=== PATIENT | male | born 1945 | race Caucasian/White ===

== ENCOUNTER 2017-03-01 12:52 | Inpatient (IN) | payer OTHER, MEDICARE ==
--- NOTE | 2017-03-01 12:59 | CPEKG ---
Heart Rate: 141 RR Interval: 426 QRSD Interval: 132 QT Interval: 360 QTC Interval: 552 P [place]: 0 QRS [place]: -59 T Wave [place]: 121 EKG Severity - ABNORMAL ECG - EKG Impression: SVT with aberrancy Electronically Signed By: Dat Lino 03-Mar-2017 10:45:59
[2017-03-01] MEDS ORDERED: NS 1,000 ML IV ONE (13:15)
[2017-03-01 13:25] LABS: % IMMATURE GRANULYOCYTES 0.6 % (0.0-1.1); ABSOLUTE IMMATURE GRANULOCYTES 0.04 10^3/uL (0.00-0.10); ADD DIFF? NO; ADD MORPH? NO; ADD SCAN? NO; ATYPICAL LYMPHOCYTE FLAG 0 (0-99); FRAGMENT RBC FLAG 0 (0-99); HEMOGLOBIN 18.9 g/dL (13.7-17.5); LEFT SHIFT FLG 0 (0-99); LIPEMIA HEMOLYSIS FLAG 90 (0-99); MEAN CELL HEMOGLOBIN 33.5 pg (27.9-34.1); MEAN CELL HEMOGLOBIN CONCENTR. 35.7 g/dL (32.4-36.7); MEAN PLATELET VOLUME 9.9 fL (8.7-11.7); PLATELET CLUMPS FLAG 0 (0-99); PLATELET COUNT 183 10^3/uL (150-400); RED BLOOD CELL COUNT 5.64 10^6/uL (4.40-6.38); RED CELL DISTRIBUTION WIDTH 13.4 % (11.5-15.2)
[2017-03-01 13:42] LABS: ANION GAP 15 mEq/L (8-16); CALCIUM 9.8 mg/dL (8.5-10.4); CARBON DIOXIDE 25 mEq/l (22-31); CHLORIDE 101 mEq/L (97-110); GLOMERULAR FILTRATION RATE > 60; GLUCOSE 112 mg/dL (70-100); POTASSIUM 4.5 mEq/L (3.5-5.2); SODIUM 141 mEq/L (134-144)
[2017-03-01 14:13] LABS: TROPONIN I < 0.012 ng/mL (0.000-0.034)
--- NOTE | 2017-03-01 15:41 | CPEKG ---
Heart Rate: 76 RR Interval: 789 P-R Interval: 156 QRSD Interval: 130 QT Interval: 416 QTC Interval: 468 P [place]: 57 QRS [place]: -92 T Wave [place]: 11 EKG Severity - ABNORMAL ECG - EKG Impression: SINUS RHYTHM EKG Impression: RBBB AND LAFB EKG Impression: REPOLARIZATION ABNORMALITIES, ANTERIOR LEADS EKG Impression: COMPARED WITH 03/01/2017 AT 12:57 P.M., SINUS RHYTHM HAS BEEN RESTORED. Electronically Signed By: Jamee Vicente 01-Mar-2017 18:00:15
[2017-03-01] MEDS ORDERED: ONDANSETRON DISINTEGRATING 4 MG TAB PO PRN (16:46)
[2017-03-01] MEDS ORDERED: ONDANSETRON 4 MG/2 ML VIAL IVP PRN (16:46)
[2017-03-01] MEDS ORDERED: ACETAMINOPHEN 325 MG TAB PO PRN (16:46)
--- NOTE | 2017-03-01 17:42 | GHP ---
[f rep st] HISTORY AND PHYSICAL DATE OF ADMISSION: 03/01/2017 HISTORY OF PRESENT ILLNESS: The patient is a pleasant 71-year-old gentleman with a minimal past med ical history, who presented to his primary care physician's office with complaints of a rash. It so unds like he has a pruritic rash on his shoulders and arms, without erythema, fever or chills. It h as been bothering him at night. At his primary care physician's office, Dr. Buitrago, he was noted to have a pulse of 157. He was referred to Urgent Care, where he was found to have a wide-complex tac hycardia. He was referred to the emergency department for further evaluation. When I speak with the patient, he notes that he felt some fluttering in his chest. He attributed it to nervousness of going to the doctor. He has no previous history of known coronary disease or arr hythmia. He does drink 4 or 5 alcoholic drinks a day, but does not describe heart failure symptoms or previous symptoms, such as atrial fibrillation. He has no history of loss of consciousness or sy ncope. At Urgent Care, he was found have a wide-complex tachycardia with a left bundle branch block concern ing for ventricular tachycardia. The patient has not had fever or chills. He does not use stimulant medications. He does take Synth roid and has a chronically slightly elevated TSH. REVIEW OF SYSTEMS: Complete 10-point review of systems was conducted and was negative, except as no kerri in the HPI. PAST MEDICAL HISTORY: 1. Moderate to heavy alcohol use. 2. Hypertension. 3. It sounds like he has hyperthyroidism, for which he is treated with Synthroid. Perhaps he had a nodule, which is trying to be suppressed. SOCIAL HISTORY: Alcohol, as in the HPI. No tobacco. He is originally from the [place]. He has wo rked in a variety of jobs. He is retired. He lives in [place]. at the bedside. FAMILY HISTORY: Parents . PHYSICAL EXAM: PRESENTING VITAL SIGNS: Blood pressure 135/107, pulse 148, now in the 70s, breathin g 18 times a minute, 94% on room air, temp 36.6. GENERAL: In no acute distress. HEENT: Sclerae a nicteric. Oropharynx clear. Mucous membranes moist. NECK: Supple, without lymphadenopathy or JVD . LUNGS: Clear to auscultation bilaterally. HEART: S1, S2. ABDOMEN: Soft, nontender, nondisten ded. LOWER EXTREMITIES: Without edema. Calves are nontender. SKIN: Without rash. NEUROLOGIC: Nonfocal. LABS: Sodium 141, potassium 4.5, chloride 101, bicarb 25, BUN 14, creatinine 1.0, glucose 112. Tro ponin less than 0.012, BNP slightly elevated at 368. TSH 5.7. White count 6, hematocrit 53, platel ets are 183,000. IMAGING: Initial EKG interpreted by me shows a wide-complex tachycardia with a left bundle branch b lock pattern, although it is proceeded by a sinus beat with concern for a fusion beat. It is 141. There are some diffusely saggy ST segments across the precordium. Subsequent EKG shows sinus at 76 with left axis deviation, right bundle branch and left anterior fascicular block pattern. He does h ave T-wave inversions with ST depression in V2 and V3. There is no prior for comparison. I have discussed the case Dr. George Villeda. ASSESSMENT AND PLAN: This is a 71-year-old gentleman who presents with a rash and inadvertently fou nd to have wide-complex tachycardia. 1. Wide-complex tachycardia. I suspect this is likely atrial fibrillation with aberrant conduction . However, I do acknowledge there is concern that this represents ventricular tachycardia. His cli nical stability argues against it. Either way, the patient needs a thorough cardiac workup. Echoca rdiogram and serial troponins have been ordered. We will follow him on telemetry. He is being seen by Cardiology. Will determine whether angiogram versus stress test will be indicated. 2. Rash. I suspect this is a hypersensitivity rash. I have ordered a steroid cream. 3. Alcohol use. I think the patient is moderate risk for withdrawal. I am not sure how long he wi ll be in the hospital. We will follow. 4. Prophylaxis. Pharmacologic prophylaxis is indicated. I will start enoxaparin. 5. Elevated thyroid-stimulating hormone. This is chronic and followed by his primary care physicia n. It is only modestly elevated. We will follow. DISPOSITION: For now, inpatient status. /[id number]/MODL
--- NOTE | 2017-03-01 17:47 | EDPHY ---
H & P Time Seen by Provider: 03/01/17 12:59 HPI/ROS: CC: rapid HR HPI: 71 yo male presents with a rapid HR. He was at his PCP's office today for evaluation for a rash. On routine VS check, his HR was 150. He was otherwise asymptomatic. EKG revealed a wide complex tachycardia. He was sent to the ED for further evaluation. Over the last 8 months, he has noticed occasional rapid HR, most often in the afternoons. The rapid HR lasts a variable amount of time , sometimes for a few moments, sometimes for much longer. No associated sx; no cp, SOB, dizziness. h/o hypothyroidism, on thyroid replacement meds, no recent change in dosing. No h/o cardiopulm disease. He also has an itchy rash on his torso and arms. ROS: complete 10 pt ROS negative except as noted in the HPI. Past Medical/Surgical History: Hypothyroidism Social History: Smoking Status: Never smoked Physical Exam: Alert, pleasant, appears comfortable HEENT: normal inspection, OSEAS, EOMI, OP moist Neck: no JVD or adenopathy Chest: normal RR, CTA CV: regular rate and rhythm, no murmur Abd: soft, NT Ext: NT, no edema Neuro: Alert, oriented, motor/sensory grossly intact Psych: affect/mood intact Skin: excoriated rash on BUE and upper torso Constitutional: Initial Vital Signs Temperature (C) 36.6 C 03/01/17 12:57 Heart Rate 148 H 03/01/17 12:57 Respiratory Rate 18 03/01/17 12:57 Blood Pressure 135/107 H 03/01/17 12:57 O2 Sat (%) 94 03/01/17 12:57 O2 Delivery Mode Nasal Cannula O2 (L/minute) 2 Allergies/Adverse Reactions: No Known Allergies Allergy (Verified 03/01/17 15:50) Home Medications: Medication Instructions Recorded Donepezil HCl [Aricept 5 MG (*)] 2.5 mg PO HS 03/01/17 Levothyroxine [Synthroid 25 mcg 25 mcg PO DAILY06 03/01/17 (*)] Ranitidine HCl 150 mg PO PRN PRN 03/01/17 Medical Decision Making - Diagnostics EKG Interpretation: EKG interpreted by me: Wide complex tachycardia, rate 150, c/w ventricular tachycardia. Interpretation: abnormal EKG Repeat EKG: NSR, RBBB Imaging Results: Imaging Impressions Chest X-Ray 03/01/17 13:18 Impression: Mild stable enlargement of the cardiac silhouette, otherwise negative. ED Course/Re-evaluation: This pt presents with wide complex tachycardia, with ddx of SVT with aberrancy vs Vtach. Concerning for non-sustained Vtach, given advanced age and characteristic EKG findings. Initially, he was in NSR on arrival to ED, followed by a few minute episode of wide complex tachycardia. During the episode of NSVT, BP adequate and pt was asymptomatic. I consulted Dr. George Villeda. Dr. Villeda reviewed the EKG's and agreed with likely Vtach. Given pt in NSR throughout the remainder of his [facility] stay, no medications given. He will require inpt admission for further cardiac evaluation. Dr. Villeda will consult on this pt; the hospitalist service was consulted for admission. This pt utilized 35 minutes of critical care time by me exclusive of unbundled procedures. Organ at risk: heart Differential Diagnosis: includes though not limited to SVT, Afib/flutter, Vtach, thyrotoxicosis, hypotension, ACS. - Data Points Laboratory Results: Laboratory Results 03/01/17 13:07 03/01/17 13:07 03/01/17 03/01/17 03/01/17 13:07 13:07 13:07 WBC 6.55 10^3/uL 10^3/uL (3.80-9.50) RBC 5.64 10^6/uL 10^6/uL (4.40-6.38) Hgb 18.9 g/dL H g/dL (13.7-17.5) Hct 53.0 % H % (40.0-51.0) MCV 94.0 fL fL (81.5-99.8) MCH 33.5 pg pg (27.9-34.1) MCHC 35.7 g/dL g/dL (32.4-36.7) RDW 13.4 % % (11.5-15.2) Plt Count 183 10^3/uL 10^3/uL (150-400) MPV 9.9 fL fL (8.7-11.7) Neut % (Auto) 68.3 % % (39.3-74.2) Lymph % (Auto) 16.8 % % (15.0-45.0) Kane % (Auto) 9.5 % % (4.5-13.0) Eos % (Auto) 3.7 % % (0.6-7.6) Baso % (Auto) 1.1 % % (0.3-1.7) Nucleat RBC Rel Count 0.0 % % (0.0-0.2) Absolute Neuts (auto) 4.48 10^3/uL 10^3/uL (1.70-6.50) Absolute Lymphs (auto) 1.10 10^3/uL 10^3/uL (1.00-3.00) Absolute Monos (auto) 0.62 10^3/uL 10^3/uL (0.30-0.80) Absolute Eos (auto) 0.24 10^3/uL 10^3/uL (0.03-0.40) Absolute Basos (auto) 0.07 10^3/uL 10^3/uL (0.02-0.10) Absolute Nucleated RBC 0.00 10^3/uL 10^3/uL (0-0.01) Immature Gran % 0.6 % % (0.0-1.1) Immature Gran # 0.04 10^3/uL 10^3/uL (0.00-0.10) Sodium 141 mEq/L mEq/L (134-144) Potassium 4.5 mEq/L mEq/L (3.5-5.2) Chloride 101 mEq/L mEq/L (97-110) Carbon Dioxide 25 mEq/l mEq/l (22-31) Anion Gap 15 mEq/L mEq/L (8-16) BUN 14 mg/dL mg/dL (7-23) Creatinine 1.0 mg/dL mg/dL (0.7-1.3) Estimated GFR > 60 Glucose 112 mg/dL H mg/dL (70-100) Calcium 9.8 mg/dL mg/dL (8.5-10.4) Troponin I < 0.012 ng/mL ng/mL (0.000-0.034) NT-Pro-B Natriuret Pep 368 pg/mL H pg/mL (0-125) TSH 5.700 uIU/mL H uIU/mL (0.465-4.680) Medications Given: Discontinued Medications Sodium Chloride (Ns) 1,000 mls @ 0 mls/hr IV ONCE ONE PRN Reason: Wide Open Stop: 03/01/17 13:16 Last Admin: 03/01/17 13:15 Dose: 1,000 mls Departure - Departure Disposition: [facility] Inpatient Acute Clinical Impression: Ventricular tachycardia (paroxysmal) Condition: Serious
--- NOTE | 2017-03-01 18:28 | GCON ---
[f rep st] CONSULTATION CARDIOLOGY CONSULTATION DATE OF CONSULTATION: 03/01/2017 INDICATIONS: Wide complex tachycardia. HISTORY OF PRESENT ILLNESS: The patient is a pleasant 71-year-old male. He has no known cardiovasc ular disease. He recalls having seen Dr. Crispin Jaramillo a number of years ago and recalls having had s ome cardiac tests; however, there are no details of those tests in our medical system. He is admitt ed to the hospital with wide complex tachycardia. He states he has been experiencing episodes of "f luttering" in his chest now for several months. He thinks that these episodes tend to be sporadic a nd generally are short-lived. With these events he has no chest pain or shortness of breath. Over the last year, he has had 2 to 3 episodes of near-syncope. One occurred while he was driving. He i s not sure if these events are associated with his typical fluttering sensation in his chest. Earlier today, he was at his PCP's office. He went there to be evaluated for a left arm rash and he was found to be tachycardic. He was sent to the emergency department for further evaluation. On a rrival in the emergency department, he was in a wide complex tachycardia with a heart rate of 141 be ats per minute. In looking at the 12-lead electrocardiogram, it appears that there is a normal sinu s complex with the second beat being a fusion beat and then a wide complex tachycardia after that. These findings are most consistent with ventricular tachycardia. He spontaneously terminated to nor mal sinus rhythm. That electrocardiogram demonstrates sinus rhythm with a left anterior fascicular block and a right bundle branch block with ST/T changes consistent with his IVCD. Currently, he sta aaron he feels well. He denies symptoms of chest discomfort. He does not exercise regularly although apparently does yard work around his 1-acre piece of property. PAST MEDICAL HISTORY: 1. Obesity. 2. Hypertension. 3. Hypothyroidism. HOME MEDICATIONS: Ranitidine 150 mg as needed, levothyroxine 25 mcg daily, and donepezil or Aricept 2.5 mg before bed. ALLERGIES: He has no known drug allergies. SOCIAL HISTORY: He is retired. He used to work in an office. Currently he does not exercise altho ugh he does do yard work. He describes himself as sedentary and has never smoked. He admits to 3 t o 5 drinks a day consisting of either margaritas or beer. SURGICAL HISTORY: He has had a previous surgical repair of a large hiatal hernia and left hand surg susy. REVIEW OF SYSTEMS: A full 10-point review of systems was performed and was otherwise negative. FAMILY HISTORY: Noncontributory. DATABASE: His electrocardiogram as at 12:53 today demonstrated a wide complex tachycardia with a no nspecific IVC morphology and a left axis deviation most consistent with ventricular tachycardia. Bartlett bsequently, his electrocardiogram after termination of this arrhythmia demonstrates sinus rhythm at 76 beats per minute with a right bundle and left anterior fascicular block. His chest x-ray was unr emarkable. White blood cell count 6.55, hematocrit 53.0, platelet count 183,000. Basic metabolic p bahman normal. Troponin negative at less than 0.012. TSH 5.7. N-terminal proBNP is 368,000. IMPRESSION: The patient is a 71-year-old male who presented to his PCP's office for a routine visit for a left arm rash and was found to be in wide complex tachycardia. Historically, he describes calero markg had palpitations now for at least the last 6 months and 2 to 3 episodes of near-syncope over th e last year. His electrocardiogram appears to be most consistent with ventricular tachycardia. The exact etiology for the ventricular tachycardia is not entirely clear. Certainly, underlying ischem ic heart disease is on the differential diagnosis in this 71-year-old obese hypertensive male. Othe r possibilities include an idiopathic ventricular tachycardia or potentially arrhythmogenic right ve ntricular cardiomyopathy. Other forms of cardiomyopathy such as hypertrophic cardiomyopathy certain ly are on the differential diagnosis. RECOMMENDATIONS: 1. He has been admitted to telemetry and we will continue to monitor him overnight. 2. I have ordered an echocardiogram for evaluation of his LV function. 3. I will plan for diagnostic coronary angiography in the morning. 4. I will write to start him on a beta denita, metoprolol 25 mg twice daily and low-dose aspirin. 5. We will check lipids. 6. Further recommendations will be made pending his hospital course. /[id number]/MODL
[2017-03-01 19:37] LABS: CHOLESTEROL 230 mg/dL (140-220); CHOLESTEROL/HDL RATIO 4.89 RATIO (1.00-4.97); HIGH DENSITY LIPOPROTEIN 47 mg/dL (40-65); LDL/HDL RATIO 2.66 RATIO (1.00-3.64); LOW DENSITY LIPOPROTEIN 125 mg/dL (80-100); NON-HIGH DENSITY LIPOPROTEIN 183 mg/dL (90-129); TRIGLYCERIDE 291 mg/dL (40-150); VERY LOW DENSITY LIPOPROTEINS 58 mg/dL (8-25)
[2017-03-01] MEDS: HYDROCORTISONE 1% CREAM TP SCH (20:47)
[2017-03-01] MEDS: METOPROLOL TARTRATE 25 MG TAB PO SCH (20:49)
[2017-03-01] MEDS: TEMAZEPAM 15 MG CAP PO SCH (20:49)
[2017-03-01] MEDS: DONEPEZIL HCL 5 MG TAB PO SCH (20:50)
[2017-03-01] MEDS ORDERED: FAMOTIDINE 20 MG TAB PO PRN (21:00)
[2017-03-02 04:55] LABS: CARBON DIOXIDE 24 mEq/l (22-31); CREATININE 0.9 mg/dL (0.7-1.3); GLOMERULAR FILTRATION RATE > 60; GLUCOSE 99 mg/dL (70-100)
[2017-03-02 05:03] LABS: INR 1.06 (0.83-1.16); PROTIME(PATIENT) 13.7 SEC (12.0-15.0)
[2017-03-02 05:28] LABS: ANION GAP 10 mEq/L (8-16); CHLORIDE 104 mEq/L (97-110); POTASSIUM 4.1 mEq/L (3.5-5.2); SODIUM 138 mEq/L (134-144)
[2017-03-02 05:50] LABS: TROPONIN I < 0.012 ng/mL (0.000-0.034)
[2017-03-02 06:00] LABS: % IMMATURE GRANULYOCYTES 0.5 % (0.0-1.1); ABSOLUTE IMMATURE GRANULOCYTES 0.03 10^3/uL (0.00-0.10); ADD DIFF? NO; ADD MORPH? NO; ADD SCAN? NO; ATYPICAL LYMPHOCYTE FLAG 0 (0-99); FRAGMENT RBC FLAG 10 (0-99); HEMATOCRIT 46.8 % (40.0-51.0); HEMOGLOBIN 16.3 g/dL (13.7-17.5); LEFT SHIFT FLG 0 (0-99); LIPEMIA HEMOLYSIS FLAG 90 (0-99); MEAN CELL HEMOGLOBIN 33.6 pg (27.9-34.1); MEAN CELL HEMOGLOBIN CONCENTR. 34.8 g/dL (32.4-36.7); MEAN CELL VOLUME 96.5 fL (81.5-99.8); MEAN PLATELET VOLUME 9.9 fL (8.7-11.7); PLATELET CLUMPS FLAG 0 (0-99); PLATELET COUNT 170 10^3/uL (150-400); RED BLOOD CELL COUNT 4.85 10^6/uL (4.40-6.38); RED CELL DISTRIBUTION WIDTH 13.3 % (11.5-15.2)
[2017-03-02] MEDS: LEVOTHYROXINE 25 MCG TAB PO SCH (06:31)
--- NOTE | 2017-03-02 09:21 | CPEKG ---
Heart Rate: 52 RR Interval: 1154 P-R Interval: 148 QRSD Interval: 134 QT Interval: 480 QTC Interval: 447 P [place]: 12 QRS [place]: -70 T Wave [place]: -47 EKG Severity - ABNORMAL ECG - EKG Impression: SINUS RHYTHM EKG Impression: RBBB AND LAFB Electronically Signed By: Dat Lino 02-Mar-2017 15:06:23
--- NOTE | 2017-03-02 09:31 | SOAPPROG ---
KEY Progress Note Assessment/Plan: Assessment/Plan: He presents with episodes of palpitations associated with a wide complex tachycardia. Thus far, a his left ventricle appears to be structurally normal. His cardiac enzymes are negative. In reviewing the electrocardiogram during wide complex tachycardia there are no morphologic criteria that suggest ventricular tachycardia. 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 Overall, I think it is most likely that he is experiencing anything episodes supraventricular tachycardia with aberrancy different from his baseline right bundle branch block. Certainly ventricular tachycardia has not been excluded. His case was discussed with electrophysiology. The plan is to proceed with electrophysiologic study to further define this arrhythmia. Further recommendations will be made pending that study. 03/02/17 09:31 Subjective: He did well last night. He had no symptoms of chest discomfort or dyspnea. Telemetry, he remained predominantly in sinus rhythm. He did have an episode of what appears to be an SVT with his typical QRS morphology. Objective: Vital Signs Temp Pulse Resp BP Pulse Ox 36.6 C 51 L 12 138/82 H 91 L 03/02/17 08:45 03/02/17 08:45 03/02/17 08:45 03/02/17 08:45 03/02/17 08:45 Laboratory Results 03/02/17 03:16 03/02/17 03:16 03/01/17 03/02/17 03/03/17 05:59 05:59 05:59 Intake Total 1320 Output Total 450 Balance 870 PT 13.7 SEC (12.0-15.0) 03/02/17 03:16 INR 1.06 (0.83-1.16) 03/02/17 03:16 Laboratory Tests 03/01/17 03/01/17 03/01/17 13:07 13:07 21:05 Troponin I < 0.012 0.021 Triglycerides 291 H Cholesterol 230 H LDL Cholesterol, Calc 125 H Non-HDL Cholesterol 183 H HDL Cholesterol 47 TSH 5.700 H 03/02/17 03:16 Troponin I < 0.012 Triglycerides Cholesterol LDL Cholesterol, Calc Non-HDL Cholesterol HDL Cholesterol TSH 6.340 H Physical Exam - Physical Exam General Appearance: WD/WN, alert Neck: non-tender, full range of motion Respiratory: chest non-tender, lungs clear, normal breath sounds Cardiac/Chest: regular rate, rhythm, No edema, No gallop, No JVD Peripheral Pulses: 2+: carotid (R), carotid (L) Abdomen: non-tender, soft Neuro/Psych: alert, oriented x 3 ICD10 Worksheet Patient Problems: Problems Problem Status Onset Ventricular tachycardia (paroxysmal) Acute Paraesophageal hiatal hernia Acute
[2017-03-02] MEDS: ASPIRIN 81 MG CHEWABLE TAB PO SCH (10:00)
[2017-03-02] MEDS: HYDROCORTISONE 1% CREAM TP SCH ×2 (10:01→21:15)
[2017-03-02] MEDS: ENOXAPARIN 40 MG/0.4 ML SYR SC SCH (10:01)
[2017-03-02] MEDS: METOPROLOL TARTRATE 25 MG TAB PO SCH ×2 (10:01→21:12)
[2017-03-02] MEDS ORDERED: DIAZEPAM 5 MG TAB PO ONE (11:23)
[2017-03-02] MEDS ORDERED: ASPIRIN EC 325 MG TAB PO ONE (11:23)
[2017-03-02] MEDS ORDERED: NS 1,000 ML IV ONE (11:23)
[2017-03-02] MEDS ORDERED: FAMOTIDINE 20 MG TAB PO ONE (11:23)
[2017-03-02] MEDS ORDERED: diphenhydrAMINE 25 MG CAP PO ONE (11:23)
[2017-03-02] MEDS ORDERED: ceFAZolin 2 GM/DEXTROSE 100 ML IV ONE (11:37)
[2017-03-02] MEDS ORDERED: BACITRACIN IRRIGATION/NS 50,000 UNITS/1,000 ML BTL IRR ONE (11:37)
--- NOTE | 2017-03-02 11:48 | PDANEPAE ---
ANE History of Present Illness 71 yo male admitted with arrhythmia, presyncopal symptoms. ANE Past Medical History - Cardiovascular History Hx Hypertension: Yes Hx Arrhythmias: Yes Hx Palpitations: Yes - Pulmonary History Hx Oxygen in Use at Home: No Hx Sleep Apnea: No - Endocrine History Hx Diabetes: No Hypothyroid: Yes - Renal History Renal History Comment: renal stones - GI History GERD: moderate GERD Comment: Rand fundoplication - Chronic Pain History Chronic Pain: No ANE Review of Systems Review of Systems: - Exercise capacity METS (RN): 3 METS (SOB after slow walk for 1 mile, more sedentary laterly.) - Systems Constitutional: Reports: no symptoms Cardiac: Reports: lightheadedness, palpitations, other (Ran out of anti- hypertensives about 10 days ago and has not renewed his med. Cannot remember the name of the med.) Neurological: Reports: other (Pt not on Aricept, that is his 's medication.) ANE Patient History - Allergies Allergies/Adverse Reactions: No Known Allergies Allergy (Verified 03/01/17 15:50) - Home Medications Home medications: home medication list seen and reviewed Home Medications: Donepezil HCl [Aricept 5 MG (*)] 2.5 mg PO HS 03/01/17 [Last Taken 02/22/17] Levothyroxine [Synthroid 25 mcg (*)] 25 mcg PO DAILY06 03/01/17 [Last Taken 11/10] Ranitidine HCl 150 mg PO PRN PRN 03/01/17 [Last Taken Unknown] - NPO status NPO Status: no food or drink >8 hours - Anes Hx Anes Hx: no prior problems - Smoking Hx Smoking Status: Never smoked Marijuana use: No - Alcohol Use Alcohol Use: Heavy (2-6 / day) - Family Anes Hx Family Anes Hx: neg - N/A ANE Labs/Vital Signs - Labs Result Diagrams: 03/02/17 03:16 03/02/17 03:16 - Vital Signs Blood Pressure: 138/82 Heart Rate: 51 Respiratory Rate: 12 O2 Sat (%): 91 Height: 177.8 cm Weight: 96.7 kg ANE Physical Exam - Airway Neck exam: FROM Mallampati Score: Class 3 Mouth exam: normal dental/mouth exam - Pulmonary Pulmonary: clear to auscultation - Cardiovascular Cardiovascular: regular rate and rhythym - ASA Status ASA Status: III ANE Anesthesia Plan Anesthesia Plan: general endotracheal anesthesia
--- NOTE | 2017-03-02 12:45 | PDHPUP ---
History & Physical Update H&P update statement: This history and physical update is based on an assessment of the patient which was completed after admission or registration (within 24 hours), but prior to the surgery/procedure. H&P update: H&P reviewed & patient examined, no change in patient's condition since H&P completed
--- NOTE | 2017-03-02 12:45 | PDPROPOC ---
Sedation Plan of Care Sedation Plan of Care: vital signs stable, mental status noted, patient educated of risks, benefits, alternatives, patient can tolerate sedation ASA Classification: ASA 3 Mallampati Score: Class 3 Mallampati Reference Image: Patient passed 3-3-2 rule?: Yes
[2017-03-02] MEDS ORDERED: LIDOCAINE 1% 300 MG/30 ML SDV ONE (12:53)
[2017-03-02] MEDS ORDERED: HEPARIN 10,000 UNIT/10 ML MDV ONE (12:53)
[2017-03-02] MEDS ORDERED: ISOPROTERENOL HCL/D5W 0.2 MG/50 ML BAG IV ONE (12:54)
[2017-03-02] MEDS ORDERED: BUPIVACAINE 0.5% 30 ML SDV ONE (12:54)
[2017-03-02] MEDS ORDERED: fentaNYL 100 MCG/2 ML INJ ONE (13:18)
[2017-03-02] MEDS ORDERED: PROPOFOL 200 MG/20 ML VIAL ONE (13:18)
[2017-03-02] MEDS ORDERED: DEXAMETHASONE 4 MG/ML VIAL ONE (13:18)
[2017-03-02] MEDS ORDERED: ROCURONIUM 100 MG/10 ML VIAL ONE (13:18)
[2017-03-02] MEDS ORDERED: VASOPRESSIN 20 UNIT/ML VIAL ONE (13:37)
--- NOTE | 2017-03-02 15:17 | HOSPPROG ---
Hospitalist Progress Note Assessment/Plan: * wide complex tachycardia * V tach versus SVT with aberrancy * Getting EP study * hypothyroidism * TSH is a little bit elevated * Would follow up primary care Subjective: No new complaints Objective: Vital Signs Temp Pulse Resp BP Pulse Ox 36.6 C 51 L 12 138/82 H 91 L 03/02/17 08:45 03/02/17 11:54 03/02/17 11:54 03/02/17 11:54 03/02/17 11:54 Laboratory Results 03/02/17 03:16 03/02/17 03:16 03/01/17 03/02/17 03/03/17 05:59 05:59 05:59 Intake Total 320 Output Total 450 Balance -130 PT 13.7 SEC (12.0-15.0) 03/02/17 03:16 INR 1.06 (0.83-1.16) 03/02/17 03:16 Discussed with Cardiology Tele personally viewed interpreted normal sinus rhythm - no events - Physical Exam Constitutional: no apparent distress, appears nourished, not in pain Eyes: anicteric sclera, EOMI Ears, Nose, Mouth, Throat: moist mucous membranes, hearing normal, ears appear normal Cardiovascular: regular rate and rhythym, no murmur, rub, or gallop Respiratory: no respiratory distress, no rales or rhonchi, clear to auscultation Gastrointestinal: normoactive bowel sounds, soft, non-tender abdomen, no palpable masses Skin: warm Neurologic: AAOx3 Psychiatric: interacting appropriately, not anxious, not encephalopathic, thought process linear ICD10 Worksheet Patient Problems: Problems Problem Status Onset Ventricular tachycardia (paroxysmal) Acute Paraesophageal hiatal hernia Acute
[2017-03-02] MEDS ORDERED: GLYCOPYRROLATE 0.2 MG/1 ML VIAL ONE ×2 (15:37→15:38)
[2017-03-02] MEDS ORDERED: NEOSTIGMINE METHYLSULFATE 3 MG/3 ML SYR ONE (15:37)
[2017-03-02] MEDS ORDERED: ONDANSETRON 4 MG/2 ML VIAL ONE (15:37)
[2017-03-02] MEDS ORDERED: ACETAMINOPHEN 500 MG TAB PO PRN (16:09)
[2017-03-02] MEDS ORDERED: ALBUTEROL 3 ML DEYVIAL IH PRN (16:09)
[2017-03-02] MEDS ORDERED: NALOXONE HCL 0.4 MG/ML INJ IVP PRN (16:09)
--- NOTE | 2017-03-02 16:11 | POSTANESTH ---
Post Anesthetic Evaluation Cardiovascular Status: Normal, Stable Respiratory Status: Similar to Pre-op Cond. Level of Consciousness/Mental Status: Can Participate in Eval, Mildly Sleepy, Arousable Pain Control: Adequate, Prn Tx Ordered Nausea/Vomiting Control: Adequate, Prn Tx Ordered (Hoarse voice. Pt had expiratory CO2 pattern indicative of obstruction. Pt informed that he might have an underlying pulmonary process at work, and counselled to see his PCP after he is discharged from this hospitalization.)
--- NOTE | 2017-03-02 16:13 | CPEKG ---
Heart Rate: 57 RR Interval: 1053 P-R Interval: 156 QRSD Interval: 138 QT Interval: 504 QTC Interval: 491 P [place]: -8 QRS [place]: -71 T Wave [place]: -49 EKG Severity - ABNORMAL ECG - EKG Impression: SINUS RHYTHM EKG Impression: RBBB AND LAFB Electronically Signed By: Jamee Vicente 02-Mar-2017 19:32:20
--- NOTE | 2017-03-02 16:42 | ECHO ---
[id number] [id number] + + [address] : : [place] [address] : : [phone] + + Adult Echocardiographic Report + --+ :Name: ALEXANDRE MCMANUS Mellogina Date: 03/01/2017 05:01 PM : : Hospital Admission Number: [id number] Location: 2 00: :: 1945 Gender: Male Height: 70 in : :Age: 71 yrs Race: WH Weight: 214 lb : :Reason For Study: Query VT : : BSA: 2.1 meters2 : + --+ MMode/2D Measurements & Calculations IVSd: 1.1 cm LVIDd: 5.4 cm FS: 37.2 % Ao root diam: LVPWd: 1.1 cm LVIDs: 3.4 cm EDV(Teich): 4.0 cm 142.6 ml LA dimension: ESV(Teich): 4.7 cm 47.6 ml EF(Teich): 66.6 % LVLd ap4: 7.6 cm SV(MOD-sp4): EDV(MOD-sp4): 61.0 ml 101.0 ml LVLs ap4: 6.3 cm ESV(MOD-sp4): 40.0 ml EF(MOD-sp4): 60.4 % Normal Measurement Values: + + :LVIDd (3.5-5.7cm) IVSd (0.6-1.1cm) LVPWd (0.6-1.1cm) Aortic Root (2.0-3.7cm)Left Atrium (1.5-4.0cm): :LV Vol(d) (76-115ml) LV Vol(s) (29-48ml) Ejec Fraction (50-65%)PV Chucky (0.6- 1.2m/s) TV Chucky (0.4-1.0m/s) : :MV E Chucky (0.8-1.0m/s)MV A Chucky (0.3-1.0m/s)LVOT Chucky (0.7-1.2m/s) Asc Ao Chucky ( 0.9-1.8m/s) : + + Doppler Measurements & Calculations MV E max chucky: 56.8 cm/sec Ao V2 max: 123.8 cm/sec TR max chucky: 218.9 cm/sec MV A max chucky: 51.8 cm/sec Ao max P.1 mmHg TR max P.2 mmHg MV E/A: 1.1 RAP systole: 5.0 mmHg RVSP(TR): 24.2 mmHg Left Ventricle The left ventricle is normal in size. There is normal left ventricular wall thickness. Left ventricular systolic function is normal. Ejection Fraction = 60-65%. No regional wall motion abnormalities noted. Right Ventricle The right ventricle is normal in size and function. A moderator band is seen in the right ventricle. Atria The left atrium is mildly dilated. Right atrial size is normal. Slightly aneurysmal atrial septum. Mitral Valve The mitral valve is normal in structure and function. There is no evidence of mitral valve prolapse. There is no mitral valve stenosis. There is mild mitral regurgitation. Tricuspid Valve Normal tricuspid valve. There is trace tricuspid regurgitation. Aortic Valve The aortic valve is trileaflet. The aortic valve opens well. There is no aortic stenosis. There is no aortic insufficiency. Pulmonic Valve The pulmonic valve is normal in structure and function. There is no pulmonic valvular regurgitation. Great Vessels The aortic root is normal size. Pericardium/Pleural There is no pericardial effusion. Conclusion A complete two-dimensional transthoracic echocardiogram was performed (2D, M-mode, Doppler and color flow Doppler). Left ventricular systolic function is normal. Ejection Fraction = 60-65%. The left atrium is mildly dilated. There is mild mitral regurgitation. There is trace tricuspid regurgitation. Final Reading Physician: Roque Rader signed on 03/02/2017 04:40 PM Ordering Physician: Daniel Villeda Performed By: Jacquelyn Yoon, LÁZARO
[2017-03-02 16:52] LABS: ANION GAP 11 mEq/L (8-16); CALCIUM 8.8 mg/dL (8.5-10.4); CARBON DIOXIDE 24 mEq/l (22-31); CHLORIDE 104 mEq/L (97-110); CREATININE 0.9 mg/dL (0.7-1.3); GLOMERULAR FILTRATION RATE > 60; GLUCOSE 124 mg/dL (70-100); MAGNESIUM 1.7 mg/dL (1.6-2.3); POTASSIUM 4.7 mEq/L (3.5-5.2); SODIUM 139 mEq/L (134-144)
[2017-03-02] MEDS: DONEPEZIL HCL 5 MG TAB PO SCH (21:13)
[2017-03-02] MEDS: TEMAZEPAM 15 MG CAP PO SCH (21:14)
[2017-03-03 03:58] VITALS: RESP 15
[2017-03-03 04:52] LABS: % IMMATURE GRANULYOCYTES 0.7 % (0.0-1.1); ABSOLUTE IMMATURE GRANULOCYTES 0.05 10^3/uL (0.00-0.10); ADD DIFF? NO; ADD MORPH? NO; ADD SCAN? NO; ATYPICAL LYMPHOCYTE FLAG 0 (0-99); FRAGMENT RBC FLAG 0 (0-99); HEMATOCRIT 45.1 % (40.0-51.0); HEMOGLOBIN 15.8 g/dL (13.7-17.5); LEFT SHIFT FLG 0 (0-99); LIPEMIA HEMOLYSIS FLAG 90 (0-99); MEAN CELL HEMOGLOBIN 34.1 pg (27.9-34.1); MEAN CELL VOLUME 97.4 fL (81.5-99.8); MEAN PLATELET VOLUME 10.1 fL (8.7-11.7); PLATELET CLUMPS FLAG 0 (0-99); PLATELET COUNT 148 10^3/uL (150-400); RED BLOOD CELL COUNT 4.63 10^6/uL (4.40-6.38); RED CELL DISTRIBUTION WIDTH 13.1 % (11.5-15.2)
[2017-03-03 04:58] LABS: INR 0.97 (0.83-1.16); PROTIME(PATIENT) 12.8 SEC (12.0-15.0)
[2017-03-03 05:04] LABS: ANION GAP 12 mEq/L (8-16); CALCIUM 8.8 mg/dL (8.5-10.4); CARBON DIOXIDE 23 mEq/l (22-31); CHLORIDE 104 mEq/L (97-110); CREATININE 0.9 mg/dL (0.7-1.3); GLOMERULAR FILTRATION RATE > 60; GLUCOSE 97 mg/dL (70-100); POTASSIUM 4.1 mEq/L (3.5-5.2); SODIUM 139 mEq/L (134-144)
[2017-03-03 05:13] LABS: CREATINE KINASE-MB FRACTION 1.41 ng/mL (0.00-3.19); TROPONIN I 0.038 ng/mL (0.000-0.034)
[2017-03-03] MEDS: LEVOTHYROXINE 25 MCG TAB PO SCH (05:54)
[2017-03-03 08:16] VITALS: BP 132/74; PULSE 50; TEMP 97.9; O2SAT 96
--- NOTE | 2017-03-03 08:50 | CPEKG ---
Heart Rate: 46 RR Interval: 1304 P-R Interval: 156 QRSD Interval: 136 QT Interval: 488 QTC Interval: 427 P [place]: 51 QRS [place]: -69 T Wave [place]: -46 EKG Severity - ABNORMAL ECG - EKG Impression: SINUS BRADYCARDIA EKG Impression: ATRIAL PREMATURE COMPLEX EKG Impression: RBBB AND LAFB EKG Impression: COMPARED WITH 02 MAR 2017 AT 16:11, ATRIAL ECTOPY NOW PRESENT Electronically Signed By: Jamee Vicente 03-Mar-2017 14:06:51
--- NOTE | 2017-03-03 08:58 | SOAPPROG ---
KEY Progress Note Assessment/Plan: Assessment/Plan: He presents with episodes of palpitations associated with a wide complex tachycardia. Thus far, a his left ventricle appears to be structurally normal. His cardiac enzymes are negative. In reviewing the electrocardiogram during wide complex tachycardia there are no morphologic criteria that suggest ventricular tachycardia. 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 Overall, I think it is most likely that he is experiencing anything episodes supraventricular tachycardia with aberrancy different from his baseline right bundle branch block. Certainly ventricular tachycardia has not been excluded. His case was discussed with electrophysiology. The plan is to proceed with electrophysiologic study to further define this arrhythmia. Further recommendations will be made pending that study. 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 Attempts at ablation were not entirely successful due to severe conduction system disease and concern regarding precipitating high-grade AV block and the need for pacing. Therefore, the decision was made to abort further attempts at ablation and treat with medical therapy. He is tolerating metoprolol. He did have transient asymptomatic bradycardia. I think it is likely that at some point in the near future he will require permanent pacing. At this point I think he may be discharged from the hospital. I would like him to see me in the office in the next 2-3 weeks. We may consider outpatient Holter monitoring. I have asked him to check his pulse several times daily and report to us if he should have sustained episodes of tachycardia. 03/03/17 08:59 Subjective: He is doing well today. He has not had any further tachy arrhythmias on telemetry. He also denies palpitations. Has minimal pain at his right groin access site. On telemetry, he did have transient bradycardia that was asymptomatic. Objective: Vital Signs Temp Pulse Resp BP Pulse Ox 36.6 C 50 L 15 132/74 H 96 03/03/17 08:00 03/03/17 08:00 03/03/17 08:00 03/03/17 08:00 03/03/17 08:00 Laboratory Results 03/03/17 03:21 03/03/17 03:21 03/02/17 03/03/17 03/04/17 05:59 05:59 05:59 Intake Total 320 1650 Output Total 450 600 Balance -130 1050 PT 12.8 SEC (12.0-15.0) 03/03/17 03:21 INR 0.97 (0.83-1.16) 03/03/17 03:21 Physical Exam - Physical Exam General Appearance: WD/WN, alert Neck: non-tender Respiratory: lungs clear Cardiac/Chest: regular rate, rhythm, other (The right groin site is soft without hematoma or bruit; 2+ right lower extremity pulses) Peripheral Pulses: 2+: carotid (R), carotid (L) ICD10 Worksheet Patient Problems: Problems Problem Status Onset Ventricular tachycardia (paroxysmal) Acute Paraesophageal hiatal hernia Acute
[2017-03-03] MEDS: ASPIRIN 81 MG CHEWABLE TAB PO SCH (10:22)
[2017-03-03] MEDS: METOPROLOL TARTRATE 25 MG TAB PO SCH (10:22)
[2017-03-03] MEDS: HYDROCORTISONE 1% CREAM TP SCH (10:23)
[2017-03-03] MEDS: ENOXAPARIN 40 MG/0.4 ML SYR SC SCH (10:31)
--- NOTE | 2017-03-03 11:14 | GDS ---
[f rep st] DISCHARGE SUMMARY DISCHARGE DIAGNOSES: 1. Supraventricular tachycardia with aberrancy. 2. Hypertension. 3. Hypothyroidism. HISTORY: This is a 71-year-old male, who presented with heart palpitations. HOSPITAL COURSE: The patient initially looked like he was in ventricular tachycardia although it did seem more likely that he was in SVT with aberrancy. He converted to normal sinus rhythm in the [facility] department without any intervention. He was taken to the EP lab the next day, which did confir m that this was SVT with aberrancy. Attempted ablation was done but patient's conduction system was in poor shape and there was thought that he would go into heart block so this was aborted. The plan was to keep him on low-dose metoprolol and follow. Eventually he may need ablation with pacemaker pl acement. The patient's TSH is elevated at 6. He was diagnosed with hypothyroidism in 2012 and started on 25 m cg of Synthroid. His TSH is 6. We are going to increase him to a 50 mcg of Synthroid and he will fo llow up with his primary care doctor in 6 weeks. TIME SPENT: Greater than 30 minutes was spent on discharge. /[id number]/MODL
--- NOTE | 2017-03-03 11:54 | ECHO ---
[id number] [id number] + + [address] : : [place] [address] : : [phone] + + Adult Echocardiographic Report + --+ :Name: ALEXANDRE MCMANUS Mellogina Date: 03/03/2017 08:00 AM : : Hospital Admission Number: [id number] Location: 2 00: :: 1945 Gender: Male Height: 70 in : :Age: 71 yrs Race: WH Weight: 213 lb : :Reason For Study: F/U post EP study : : BSA: 2.1 meters2 : + --+ MMode/2D Measurements & Calculations IVSd: 0.98 cm LVIDd: 5.4 cm FS: 40.6 % Ao root diam: LVPWd: 1.0 cm LVIDs: 3.2 cm EDV(Teich): 4.2 cm 139.1 ml LA dimension: ESV(Teich): 5.0 cm 40.5 ml EF(Teich): 70.9 % LVLd ap4: 7.4 cm SV(MOD-sp4): EDV(MOD-sp4): 73.0 ml 115.0 ml LVLs ap4: 6.6 cm ESV(MOD-sp4): 42.0 ml EF(MOD-sp4): 63.5 % Normal Measurement Values: + + :LVIDd (3.5-5.7cm) IVSd (0.6-1.1cm) LVPWd (0.6-1.1cm) Aortic Root (2.0-3.7cm)Left Atrium (1.5-4.0cm): :LV Vol(d) (76-115ml) LV Vol(s) (29-48ml) Ejec Fraction (50-65%)PV Chucky (0.6- 1.2m/s) TV Chucky (0.4-1.0m/s) : :MV E Chucky (0.8-1.0m/s)MV A Chucky (0.3-1.0m/s)LVOT Chucky (0.7-1.2m/s) Asc Ao Chucky ( 0.9-1.8m/s) : + + Doppler Measurements & Calculations MV E max chucky: 70.6 cm/sec Ao V2 max: 97.7 cm/sec MV A max chucky: 33.6 cm/sec Ao max P.8 mmHg MV E/A: 2.1 Left Ventricle The left ventricle is normal in size. There is normal left ventricular wall thickness. Left ventricular systolic function is normal. Ejection Fraction = 60-65%. No regional wall motion abnormalities noted. Right Ventricle The right ventricle is normal in size and function. Atria The left atrium is mildly dilated. Right atrial size is normal. The interatrial septum is intact with no evidence for an atrial septal defect. Mitral Valve The mitral valve is normal in structure and function. There is no evidence of mitral valve prolapse. There is no mitral valve stenosis. There is mild mitral regurgitation. Tricuspid Valve Normal tricuspid valve. There is trace tricuspid regurgitation. Aortic Valve The aortic valve is trileaflet. The aortic valve opens well. There is no aortic stenosis. Trace aortic regurgitation. Pulmonic Valve The pulmonic valve is normal in structure and function. There is no pulmonic valvular regurgitation. Great Vessels The aortic root is normal size. Pericardium/Pleural There is no pericardial effusion. Conclusion A complete two-dimensional transthoracic echocardiogram was performed (2D, M-mode, Doppler and color flow Doppler). Left ventricular systolic function is normal. Ejection Fraction = 60-65%. The left atrium is mildly dilated. There is mild mitral regurgitation. There is trace tricuspid regurgitation. Trace aortic regurgitation. There is no pericardial effusion. Final Reading Physician: Roque Rader signed on 03/03/2017 11:53 AM Ordering Physician: Miguel Cotto Performed By: Jacquelyn Yoon, VARINDERCS
--- NOTE | 2017-03-04 10:19 | EPPROC ---
Electrophysiology Procedure Note: ELECTROPHYSIOLOGIC STUDY AND CATHETER MEDIATED ABLATION OF SLOW/FAST AV TAMMY REENTRY TACHYCARDIA PROCEDURES PERFORMED: 25402-01 EP evaluation with RA/RV/LA pace/record, with arrhythmia induction 20821-48 EP evaluation with RA/RV pace record, insert/reposition catheter, with arrhythmia induction 51452 Intracardiac catheter ablation, SVT arrhythmogenic focus 99341 3D mapping Fluoroscopy INDICATION: This is a 71 yr old male who had episode of palpitation which brought him to the ER. He was noted to have SVT and it terminated with Valsalva and then restarted. It was a wide complex tachycardia and hence it was decided to eval it with EP study with possibility of ablation. PROCEDURE: Catheters & Anesthesia: The patient arrived in the Electrophysiology Laboratory in the fasting state. The right clavicular region, right groin, and left groin area were prepped and draped in the usual sterile manner. Anesthesiologist administered general anesthesia. Appropriate non-invasive blood pressure, pulse oximetry and end- tidal CO2 monitoring was established. All catheters were placed percutaneously using the modified Seldinger technique , and advanced into position under fluoroscopic guidance. One CRD2 catheter was advanced to the His-bundle position via the right femoral vein. This was later changed to octapolar catheter for better stability . One #7 Hungarian deflectable catheter with 10 pairs of electrodes was placed via the right femoral vein into the coronary sinus. Programmed stimulation was performed from the right atrium, right ventricle and coronary sinus (left atrium). Parahisian pacing demonstrated constant H-A interval with changing V-A intervals and stimulus-A intervals during capture and loss of capture of proximal RBB proving retrograde conduction over AV node. SVT was induced easily during infusion of isoproterenol 1 mcg/min. It started with 1:2 response, with VA interval of 80ms (VA during SR and V pacing was 135ms). Concentric conduction was noted. SVT terminated with A. V stim terminated the tachycardia and hence entrainment was not possible. V pacing did not produce VT despite using two CL and triple extrastimuli. A #8 Hungarian deflectable quadrapolar electrode catheter (2mm-5mm-2mm spacing) with 4 mm tip electrode and sensor for the 3D mapping Carto system was advanced to the right atrium. 3 D mapping of the inter-atrial septum and coronary sinus was performed and location of the AV node was marked. The His and CS were in line and hence the foreshortened triangle of Youssef was noted. RF applications were delivered to the region between the tricuspid annulus and the coronary sinus ostium, at the level of the upper edge of the coronary sinus ostium. Radiofrequency applications were also delivered along the roof of the proximal coronary sinus. Junctional rhythm occurred during all of the RF applications. However, VA block as well as AV block was easily noted despite low energy lesions. There was significant concern for heart block with further lesions Programmed stimulation was continued post ablation at baseline and during graded doses of isoproterenol upto 4mcg/min. Short sustained AVNRT was inducible each of which terminated within 5-10 beats. The catheters were removed. The patient was transferred to the cardiovascular holding area in stable condition. Vascular access sheaths were removed in the holding area. There were no apparent complications. Results: SCL 980ms AVWB 460ms TCL 140bpm VA during SVT 80ms VA during SR 135ms CONCLUSIONS No induction of VT. AV tammy reentrant tachycardia using the slow AV tamym pathway for antegrade conduction and the fast AV tammy pathway for retrograde conduction. (Slow/fast AVNRT). Partially successful ablation of the slow AV tammy pathway . Considering concern for heart block aggressive ablation was not pursued. No complications. Patient Problems: Problems Problem Status Onset Paraesophageal hiatal hernia Acute Ventricular tachycardia (paroxysmal) Acute
--- NOTE | 2017-03-04 12:45 | CPEKG ---
Heart Rate: 83 RR Interval: 723 P-R Interval: 156 QRSD Interval: 130 QT Interval: 396 QTC Interval: 466 P [place]: 42 QRS [place]: -98 T Wave [place]: 14 EKG Severity - ABNORMAL ECG - EKG Impression: SINUS RHYTHM EKG Impression: RIGHT BUNDLE BRANCH BLOCK Electronically Signed By: Dat Lino 05-Mar-2017 08:32:29
--- NOTE | 2017-03-06 17:06 | ASDISCHSUM ---
Discharge Information Plan Status:Home with No Needs Medically Cleared to Leave: Discharge Date:03/03/2017 11:26 AM CM D/C Disposition:Home, Routine, Self-Care ADT D/C Disposition:Home, Routine, Self-Care Projected Discharge Date:03/03/2017 11:26 AM Transportation at D/C:Family Discharge Delay Reason: Follow-Up Date:03/03/2017 11:26 AM Discharge Slot: Final Diagnosis: Placement Information Patient Contact Information Contact Name:DREW Relationship: Address:[address] [place] Phone: [facility]/Zip Code:[place] [address] Email: Financial Information Financial Class: Primary Plan Desc:MEDICARE INPATIENT Primary Plan Number:[id number] Secondary Plan Desc:[employer]/M[employer] SUPPLEMENT Secondary Plan Number:[id number] Assessment Information [facility] CM Progress Note CM Note CM Note Notes: Patient discharging home with . No d/c needs identified, patient has instrutctions to check his pulse daily and follow up with cardiology in 2-3 weeks Date Signed: 03/03/2017 10:36 AM Electronically Signed By:Leydi Batista Intervention Information Intervention Type:*IM-Signed Date of Service:03/03/2017 11:21 AM Patient Type:Inpatient Staff Member:Anne Marie Maldonado Hours: Discipline: Severity: Comment:
== END 2017-03-03 11:26 | disposition home or self-care (01) | DRG 274 ==
LOC: CED 12:52 → F2W 15:21 → OBSVTOIN 16:46
PROVIDERS: ADMIT Internal Medicine; ATTEND Internal Medicine
PROC: 3E053KZ Introduction of Other Diagnostic Substance into Peripheral Artery, Percutaneous Approach (ICD-10-PCS; principal; 2017-03-02)
PROC: 4A023FZ Measurement of Cardiac Rhythm, Percutaneous Approach (ICD-10-PCS; principal; 2017-03-02)
PROC: 02563ZZ Destruction of Right Atrium, Percutaneous Approach (ICD-10-PCS; principal; 2017-03-02)
DX: I47.1 Supraventricular tachycardia (principal); I10 Essential (primary) hypertension; E03.9 Hypothyroidism, unspecified
CPT/HCPCS: 71010-PO; 80048-PO; 83880-PO; 84443-PO; 84484-PO; 85025-PO; 93005-PO; C1730; C1731; C1732; G0463-PO; J0690; J1100; J1644; J1650; J2405; J2704; J2710; J3010